=== PATIENT | male | born 1940 | race Caucasian/White ===

== ENCOUNTER 2017-12-20 20:03 | Emergency (ER) | payer MEDICARE, OTHER ==
[2017-12-20 20:09] VITALS: BMI 28.1
[2017-12-20 20:13] VITALS: PULSE 85; RESP 16; TEMP 98; O2SAT 96
[2017-12-20] MEDS ORDERED: Lidocaine 2% w Epi 1:100,000 Inj IJ STA (20:17)
[2017-12-20] MEDS ORDERED: Lidocaine 2% Inj (20ml) ONE (20:20)
[2017-12-20] MEDS ORDERED: Lidocaine 2% w Epi 1:100,000 Inj IJ ONE (20:24)
[2017-12-20] MEDS ORDERED: Tetanus/Diphtheria Toxoids 0.5 ml Syringe IM ONE ×2 (20:51→21:00)
--- NOTE | 2017-12-20 21:03 | ED PDOC ---
HPI: General Adult Time Seen by Provider: 12/20/17 20:13 Chief Complaint (Nursing): Abnormal Skin Integrity Chief Complaint (Provider): LEft lower leg laceration History Per: Patient History/Exam Limitations: no limitations Onset/Duration Of Symptoms: Mins Have you had recent travel within the past 21 days to any of the following countries: [place], [place], [place] or [place]?: No Current Symptoms Are (Timing): Still Present Additional Complaint(s): PT states he was doing yard work and cut the lower left leg on piece of wire/ metal. Unknown last tetanus vaccine. Pt taking plavix and aspirin at home after cardiac stent placement. Past Medical History Reviewed: Historical Data, Nursing Documentation, Vital Signs Vital Signs: Last Vital Signs Temp 98.0 F 12/20/17 20:09 Pulse 85 12/20/17 20:09 Resp 16 12/20/17 20:09 BP Pulse Ox 96 12/20/17 21:03 - Medical History PMH: CAD, Diabetes, HTN Denies: Chronic Kidney Disease - Surgical History Surgical History: Coronary Stent - Family History Family History: States: No Known Family Hx - Living Arrangements Living Arrangements: With Family - Social History Current smoker - smoking cessation education provided: No - Home Medications Home Medications: Ambulatory Orders Medication Instructions Recorded Tobramycin [Tobramycin 5 ml] 1 drop RIGHTEYE Q6 #0 arslan 04/20/15 Aspirin [Ecotrin] 325 mg PO DAILY 04/22/15 Clopidogrel [Plavix] 75 mg PO DAILY 04/22/15 Naproxen [Naprosyn] 500 mg PO BID PRN #20 tab 06/22/15 traMADol [Ultram] 50 mg PO QID #50 tab 06/22/15 Cephalexin [Keflex] 500 mg PO BID #14 capsule 12/20/17 - Allergies Allergies/Adverse Reactions: Allergies Allergy/AdvReac Type Severity Reaction Status Date / Time No Known Allergies Allergy Verified 12/20/17 20:09 Physical Exam - Reviewed Nursing Documentation Reviewed: Yes Vital Signs Reviewed: Yes - Physical Exam Appears: Positive for: Well, Non-toxic, No Acute Distress Head Exam: Positive for: ATRAUMATIC, NORMAL INSPECTION, NORMOCEPHALIC Skin: Positive for: Warm. Negative for: Normal Color (3 cm laceration, moderate bleeding ) Eye Exam: Positive for: Normal appearance ENT: Positive for: Normal ENT Inspection Neck: Positive for: Normal, Painless ROM Respiratory: Negative for: Accessory Muscle Use, Respiratory Distress Back: Positive for: Normal Inspection Extremity: Positive for: Normal ROM Neurologic/Psych: Positive for: Alert, Oriented - ECG O2 Sat by Pulse Oximetry: 96 Medical Decision Making Medical Decision Making: Tetanus vaccination administered. Procedures - Laceration/Wound Repair Left lower leg, posterior Wound Length (cm): 3 Wound's Depth, Shape: superficial Wound Explored: clean Betadine Prep?: No (Bleeding controlled after infiltrate) Anesthesia: Lidocaine w/ Epi (2cc) Wound Repaired With: Sutures Suture Size/Type: 4:0, nylon Wound Complexity: Simple Disposition - Clinical Impression Clinical Impression: Left leg pain - Patient ED Disposition Is Patient to be Admitted: No Counseled Patient/Family Regarding: Diagnosis, Need For Followup, Rx Given - Disposition Disposition: Routine/Home Disposition Time: 21:01 Condition: GOOD Additional Instructions: Do not get wet for 48 hours. Keep clean and dry with antibiotic ointment twice a day. Suture removal in 8-10 days. Prescriptions: Cephalexin [Keflex] 500 mg PO BID #14 capsule Instructions: Laceration Repair Forms: [email or web address] (Zimbabwean)
== END 2017-12-20 21:04 | disposition home or self-care (01) ==
LOC: H.ER 20:03
DX: S81.812A Laceration without foreign body, left lower leg, initial encounter (principal); Z23 Encounter for immunization; E11.9 Type 2 diabetes mellitus without complications; I10 Essential (primary) hypertension; I25.10 Atherosclerotic heart disease of native coronary artery without angina pectoris; Z79.02 Long term (current) use of antithrombotics/antiplatelets; Z79.82 Long term (current) use of aspirin; Z95.5 Presence of coronary angioplasty implant and graft

== ENCOUNTER 2017-12-28 13:22 | Emergency (ER) | payer MEDICARE, OTHER ==
--- NOTE | 2017-12-28 13:29 | ED PDOC ---
HPI: Skin/Bite Injury Time Seen by Provider: 12/28/17 13:26 Chief Complaint (Nursing): Suture/Staple Removal Chief Complaint (Provider): Suture removal - Placed 8 days ago History Per: Patient History/Exam Limitations: no limitations Onset/Duration Of Symptoms: Days Current Symptoms Are (Timing): Still Present Severity: None Additional Complaint(s): Pt was seen in [facility] 8 days ago and 3 sutures placed in the left lower leg. Pt reports no pain. No drainage. Pt states he did not begin the antibiotics because it was not painful. Past Medical History Reviewed: Historical Data, Nursing Documentation, Vital Signs Vital Signs: Last Vital Signs Temp 98.4 F 12/28/17 13:31 Pulse 75 12/28/17 13:31 Resp 16 12/28/17 13:31 BP 130/76 12/28/17 13:31 Pulse Ox 99 12/28/17 13:31 - Medical History PMH: CAD, Diabetes, HTN Denies: Chronic Kidney Disease - Surgical History Surgical History: Coronary Stent - Family History Family History: States: No Known Family Hx - Living Arrangements Living Arrangements: With Family - Social History Current smoker - smoking cessation education provided: No - Home Medications Home Medications: Ambulatory Orders Medication Instructions Recorded Tobramycin [Tobramycin 5 ml] 1 drop RIGHTEYE Q6 #0 arslan 04/20/15 Aspirin [Ecotrin] 325 mg PO DAILY 04/22/15 Clopidogrel [Plavix] 75 mg PO DAILY 04/22/15 Naproxen [Naprosyn] 500 mg PO BID PRN #20 tab 06/22/15 traMADol [Ultram] 50 mg PO QID #50 tab 06/22/15 Cephalexin [Keflex] 500 mg PO BID #14 capsule 12/20/17 - Allergies Allergies/Adverse Reactions: Allergies Allergy/AdvReac Type Severity Reaction Status Date / Time No Known Allergies Allergy Verified 12/20/17 20:09 Review of Systems ROS Statement: Except As Marked, All Systems Reviewed And Found Negative Constitutional: Negative for: Fever, Chills Skin: Positive for: Other Physical Exam - Reviewed Nursing Documentation Reviewed: Yes Vital Signs Reviewed: Yes - Physical Exam Appears: Positive for: Well, Non-toxic, No Acute Distress Head Exam: Positive for: ATRAUMATIC, NORMAL INSPECTION, NORMOCEPHALIC Skin: Positive for: Warm. Negative for: Normal Color (Well-helaing laceration of the left lower posterior leg, 3 sutures intact with localized erythema ) Eye Exam: Positive for: Normal appearance ENT: Positive for: Normal ENT Inspection Neck: Positive for: Normal Respiratory: Negative for: Accessory Muscle Use, Respiratory Distress Back: Positive for: Normal Inspection Extremity: Positive for: Normal ROM Neurologic/Psych: Positive for: Alert Medical Decision Making Medical Decision Making: Sutures easily removed with suture removal kits. No complaints. Discussed that if redness does not resolved to begin antibiotics. Disposition - Clinical Impression Clinical Impression: Visit for suture removal - Patient ED Disposition Is Patient to be Admitted: No Counseled Patient/Family Regarding: Need For Followup, Rx Given - Disposition Disposition: Routine/Home Disposition Time: 13:32 Condition: GOOD Instructions: Stitches Removal Forms: [employer] (Faroese)
[2017-12-28 13:34] VITALS: BP 130/76; PULSE 75; RESP 16; TEMP 98.4; O2SAT 99
== END 2017-12-28 13:35 | disposition home or self-care (01) ==
LOC: H.ER 13:22
DX: Z48.02 Encounter for removal of sutures (principal)

== ENCOUNTER 2018-02-01 17:02 | Emergency (ER) | payer MEDICARE ==
[2018-02-01 17:08] VITALS: O2SAT 100
[2018-02-01] MEDS ORDERED: Lidocaine 5% Patch TD STA (17:34)
[2018-02-01] MEDS ORDERED: Lidocaine 5% Patch TD ONE (17:55)
[2018-02-01 19:13] VITALS: BP 125/80; PULSE 75; RESP 16; TEMP 98.1
--- NOTE | 2018-02-01 19:15 | ED PDOC ---
Upper Extremity Pain/Injury Time Seen by Provider: 02/01/18 17:22 Chief Complaint (Nursing): Upper Extremity Problem/Injury History Per: Patient Additional Complaint(s): Pt. 7 days ago he was carrying a heavy boxy and he turned to his L side and he immediately felt pain in the L shoulder. States pain was bearable and was minimal but 3 days ago he tripped and fell landing on his L elbow and pain travelled to the L shoulder. L shoulder pain has also worsened. Denies chest pain, SOB, weakness, numbness, tingling, weakness, head injury, headache. Past Medical History Reviewed: Historical Data, Nursing Documentation, Vital Signs Vital Signs: Last Vital Signs Temp 97.9 F 02/01/18 17:04 Pulse 63 02/01/18 17:04 Resp 20 02/01/18 17:04 BP 167/78 H 02/01/18 17:04 Pulse Ox 100 02/01/18 17:04 - Medical History PMH: CAD, Diabetes, HTN Denies: Chronic Kidney Disease - Surgical History Surgical History: Coronary Stent (x 10) - Family History Family History: States: No Known Family Hx - Home Medications Home Medications: Ambulatory Orders Medication Instructions Recorded Tobramycin [Tobramycin 5 ml] 1 drop RIGHTEYE Q6 #0 arslan 04/20/15 Aspirin [Ecotrin] 325 mg PO DAILY 04/22/15 Clopidogrel [Plavix] 75 mg PO DAILY 04/22/15 Naproxen [Naprosyn] 500 mg PO BID PRN #20 tab 06/22/15 traMADol [Ultram] 50 mg PO QID #50 tab 06/22/15 Cephalexin [Keflex] 500 mg PO BID #14 capsule 12/20/17 Tramadol HCl [Ultram] 50 mg PO BID PRN #10 tablet 02/01/18 - Allergies Allergies/Adverse Reactions: Allergies Allergy/AdvReac Type Severity Reaction Status Date / Time No Known Allergies Allergy Verified 12/20/17 20:09 Review of Systems ROS Statement: Except As Marked, All Systems Reviewed And Found Negative Musculoskeletal: Positive for: Shoulder Pain Physical Exam - Physical Exam Appears: Positive for: Well, Non-toxic, No Acute Distress Head Exam: Positive for: ATRAUMATIC, NORMAL INSPECTION, NORMOCEPHALIC Skin: Positive for: Normal Color, Warm. Negative for: Rash Eye Exam: Positive for: Normal appearance Cardiovascular/Chest: Positive for: Regular Rate, Rhythm, Chest Non Tender Respiratory: Positive for: Normal Breath Sounds. Negative for: Respiratory Distress Pulses-Radial (L): 2+ Pulses-Radial (R): 2+ Extremity: Positive for: Normal ROM (FROM actively of LEFT upper extremity), Capillary Refill (< 2 seconds of LEFT upper extremity), Other (L lateral shoulder with minimal tenderness but no deformity or swelling; L elbow with mild swelling but no tenderness or deformity without break in skin integrity, warmth, or erythema) Neurologic/Psych: Positive for: Alert, Oriented. Negative for: Aphasia, Facial Droop - ECG O2 Sat by Pulse Oximetry: 100 - Progress ED Course And Treament: Ultram 50mg PO, lidoderm patch, L elbow, L shoulder x-ray, EKG ordered. Pt. refused EKG. Explained to pt. that EKG is done to r/o cardiac causes of shoulder pain. Pt. still refused EKG. Shoulder x-ray: calcific tendonitis; no fx of dislocation Elbow x-ray: no fx or dislocation. Disposition - Clinical Impression Clinical Impression: Shoulder tendonitis, Elbow injury - Patient ED Disposition Is Patient to be Admitted: No - Disposition Referrals: Tena Rolon MD [Staff Provider] - Disposition: Routine/Home Disposition Time: 18:45 Condition: STABLE Additional Instructions: Follow up with Dr. Nicanor Fall for further evaluation Return to ED immediately if symptoms worsen Prescriptions: Tramadol HCl [Ultram] 50 mg PO BID PRN #10 tablet PRN Reason: Other Instructions: Shoulder Tendinopathy (DC) Forms: [employer] (German)
--- NOTE | 2018-02-02 11:07 | RAD ---
PROCEDURE: Radiographs of the left elbow. HISTORY: Trauma COMPARISON: No prior. FINDINGS: BONES: The current study reveals that fragmentation of a small olecranon enthesophyte. Findings may represent superimposed acute on chronic fracture. Clinical correlation recommended. There is also fairly significant overlying dorsal soft tissue swelling that probably represents swelling of the bursa. JOINTS: No significant osteoarthritis. SOFT TISSUES: As above JOINT EFFUSION: No significant joint effusion is identified. OTHER FINDINGS: None IMPRESSION: The current study reveals that fragmentation of a small olecranon enthesophyte. Findings may represent superimposed acute on chronic fracture. Clinical correlation recommended. There is also fairly significant overlying dorsal soft tissue swelling that probably represents swelling of the bursa. . No significant joint effusion.
--- NOTE | 2018-02-02 11:07 | RAD ---
PROCEDURE: Radiographs of the Left Shoulder HISTORY: Trauma COMPARISON: No prior. FINDINGS: BONES: No evidence of acute displaced fracture nor dislocation. The osseous structures appear intact. 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 SOFT TISSUES: Normal. OTHER FINDINGS: None. IMPRESSION: No evidence of acute displaced fracture nor dislocation. Mild degenerative osteoarthritis as described.
== END 2018-02-01 19:12 | disposition home or self-care (01) ==
LOC: H.ER 17:02
DX: S59.901A Unspecified injury of right elbow, initial encounter (principal); W19.XXXA Unspecified fall, initial encounter; Y92.89 Other specified places as the place of occurrence of the external cause; M75.22 Bicipital tendinitis, left shoulder; E11.9 Type 2 diabetes mellitus without complications; I10 Essential (primary) hypertension; I25.10 Atherosclerotic heart disease of native coronary artery without angina pectoris; M19.012 Primary osteoarthritis, left shoulder; Z79.82 Long term (current) use of aspirin; Z95.5 Presence of coronary angioplasty implant and graft

== ENCOUNTER 2018-07-15 09:12 | Emergency (ER) | payer MEDICARE, OTHER ==
[2018-07-15 09:17] VITALS: O2SAT 98; BMI 29.9
[2018-07-15] MEDS ORDERED: Lidocaine 5% Patch TD STA (10:05)
--- NOTE | 2018-07-15 10:10 | ED PDOC ---
HPI: Back Time Seen by Provider: 07/15/18 09:30 Chief Complaint (Nursing): Back Pain Chief Complaint (Provider): Back Pain History Per: Patient History/Exam Limitations: no limitations Onset/Duration Of Symptoms: Days (x 3 months ) Current Symptoms Are (Timing): Still Present Quality Of Discomfort: "Pain" Additional Complaint(s): 78 year old male with a history of diabetes and 10 cardiac stents presents to the ED with sharp, left lower back pain for the last 3 months. Patient reports that pain began after he fell out of a chair onto the ground 3 months ago and has worsened in the last 2 weeks. He regularly takes Aspirin, Plavix and Metformin. Patient does not remember the name of his PMD because he recently switched. He denies radiation to legs, numbness, tingling, weakness, urinary symptoms, shortness of breath, chest pain, abdominal pain and testicular pain. PMD: none provided Past Medical History Reviewed: Historical Data, Nursing Documentation, Vital Signs Vital Signs: Last Vital Signs Temp 97.0 F L 07/15/18 09:21 Pulse 67 07/15/18 09:21 Resp 20 07/15/18 09:21 BP 121/69 07/15/18 09:21 Pulse Ox 98 07/15/18 09:16 - Medical History PMH: CAD, Diabetes, HTN Denies: Chronic Kidney Disease - Surgical History Surgical History: Coronary Stent (x 10) - Family History Family History: States: Unknown Family Hx - Home Medications Home Medications: Ambulatory Orders Medication Instructions Recorded Tobramycin [Tobramycin 5 ml] 1 drop RIGHTEYE Q6 #0 arslan 04/20/15 Aspirin [Ecotrin] 325 mg PO DAILY 04/22/15 Clopidogrel [Plavix] 75 mg PO DAILY 04/22/15 Naproxen [Naprosyn] 500 mg PO BID PRN #20 tab 06/22/15 RX: traMADol [Ultram] 50 mg PO QID #50 tab 06/22/15 Cephalexin [Keflex] 500 mg PO BID #14 capsule 12/20/17 Tramadol HCl [Ultram] 50 mg PO BID PRN #10 tablet 02/01/18 Diazepam [Valium] 2 mg PO BID PRN #6 tab 07/15/18 Lidocaine 5% [Lidoderm] 1 ea TD DAILY PRN #5 patch 07/15/18 RX: Acetaminophen [8Hr Arthritis 650 mg PO TID PRN 5 Days tablet.er 07/15/18 Pain] - Allergies Allergies/Adverse Reactions: Allergies Allergy/AdvReac Type Severity Reaction Status Date / Time No Known Allergies Allergy Verified 12/20/17 20:09 Review of Systems ROS Statement: Except As Marked, All Systems Reviewed And Found Negative Constitutional: Negative for: Weakness Cardiovascular: Negative for: Chest Pain Respiratory: Negative for: Shortness of Breath Gastrointestinal: Negative for: Abdominal Pain Genitourinary Male: Negative for: Dysuria, Frequency, Incontinence, Hematuria Musculoskeletal: Positive for: Back Pain Physical Exam - Reviewed Nursing Documentation Reviewed: Yes Vital Signs Reviewed: Yes - Physical Exam Appears: Positive for: No Acute Distress Head Exam: Positive for: ATRAUMATIC, NORMAL INSPECTION, NORMOCEPHALIC Skin: Positive for: Normal Color, Warm, Dry Eye Exam: Positive for: EOMI, Normal appearance, PERRL Neck: Positive for: Normal, Painless ROM, Supple Cardiovascular/Chest: Positive for: Regular Rate, Rhythm. Negative for: Murmur Respiratory: Positive for: Normal Breath Sounds. Negative for: Respiratory Distress Gastrointestinal/Abdominal: Positive for: Normal Exam, Soft. Negative for: Tenderness Back: Positive for: Other (mild lower back tenderness; positive straight leg test: on right side at 60 degrees and left side at 45 degrees). Negative for: Normal Inspection Extremity: Positive for: Normal ROM. Negative for: Tenderness, Deformity, Swelling Neurologic/Psych: Positive for: Alert, Oriented. Negative for: Motor/Sensory Deficits - ECG O2 Sat by Pulse Oximetry: 98 (RA) Pulse Ox Interpretation: Normal - Progress ED Course And Treament: 1100: Stable. AAOx3. Tolerated PO. No pain. Fu with pcp. Medical Decision Making Medical Decision Makin:05 Impression: lower back pain Initial Plan: Patient will be given Tylenol, Lidocaine and Valium. Will hold on NSAIDS because patient is on two blood thinners. Scribe Attestation: Documented by Petra Clark acting as a scribe for Tk Cheney MD Provider Scribe Attestation: All medical record entries made by the Scribe were at my direction and personally dictated by me. I have reviewed the chart and agree that the record accurately reflects my personal performance of the history, physical exam, medical decision making, and the department course for this patient. I have also personally directed, reviewed, and agree with the discharge instructions and disposition. Disposition - Clinical Impression Clinical Impression: Chronic back pain - Disposition Referrals: [facility] [Outside] - 07/15/18 10:07 am Disposition Time: 11:00 Condition: STABLE Additional Instructions: Return if not better in 3 days. Prescriptions: RX: Acetaminophen [8Hr Arthritis Pain] 650 mg PO TID PRN 5 Days tablet.er PRN Reason: Pain, Moderate (4-7) Diazepam [Valium] 2 mg PO BID PRN #6 tab PRN Reason: Muscle Spasm Lidocaine 5% [Lidoderm] 1 ea TD DAILY PRN #5 patch PRN Reason: Pain, Moderate (4-7) Instructions: Low Back Pain in Adults Forms: [employer] (Maltese)
[2018-07-15] MEDS ORDERED: Lidocaine 5% Patch TD ONE (10:22)
[2018-07-15 10:31] VITALS: BP 108/66; PULSE 68; RESP 18; TEMP 98.8
== END 2018-07-15 10:30 | disposition home or self-care (01) ==
LOC: H.ER 09:12
DX: M54.9 Dorsalgia, unspecified (principal); G89.29 Other chronic pain; E11.9 Type 2 diabetes mellitus without complications; I10 Essential (primary) hypertension; Z79.02 Long term (current) use of antithrombotics/antiplatelets; Z95.5 Presence of coronary angioplasty implant and graft

== ENCOUNTER 2018-09-11 17:02 | Emergency (ER) | payer MEDICARE ==
[2018-09-11 17:02] VITALS: BMI 29.9
[2018-09-11 17:11] VITALS: BP 120/66; PULSE 75; RESP 18; TEMP 97.8; O2SAT 99
--- NOTE | 2018-09-11 18:12 | ED PDOC ---
HPI: Trauma/Fall - HPI Time Seen by Provider: 09/11/18 17:11 Chief Complaint (Nursing): Trauma Chief Complaint (Provider): Back pain History Per: Patient Additional Complaint(s): 78 yo male, PMH of Back pain, DM, HTN, High Cholesterol and CAD ([address]), presents to ED for evaluation of left sided lower back pain x 1 week now s/p a slip and fall off a chair. Pt has been ambulating with steady gait. Pt reports the pain has gotten worse over the last few days, worse with movement. Past Medical History Reviewed: Nursing Documentation, Vital Signs Vital Signs: Last Vital Signs Temp 97.8 F 09/11/18 17:09 Pulse 75 09/11/18 17:09 Resp 18 09/11/18 17:09 BP 120/66 09/11/18 17:09 Pulse Ox 99 09/11/18 17:09 - Medical History PMH: CAD, Diabetes, HTN Denies: Chronic Kidney Disease - Surgical History Surgical History: Coronary Stent (x 10) - Family History Family History: States: Unknown Family Hx - Living Arrangements Living Arrangements: With Family - Social History Current smoker - smoking cessation education provided: No Alcohol: Social Drugs: Denies - Home Medications Home Medications: Ambulatory Orders Medication Instructions Recorded Tobramycin [Tobramycin 5 ml] 1 drop RIGHTEYE Q6 #0 arslan 04/20/15 Aspirin [Ecotrin] 325 mg PO DAILY 04/22/15 Clopidogrel [Plavix] 75 mg PO DAILY 04/22/15 Naproxen [Naprosyn] 500 mg PO BID PRN #20 tab 06/22/15 RX: traMADol [Ultram] 50 mg PO QID #50 tab 06/22/15 Cephalexin [Keflex] 500 mg PO BID #14 capsule 12/20/17 Tramadol HCl [Ultram] 50 mg PO BID PRN #10 tablet 02/01/18 Diazepam [Valium] 2 mg PO BID PRN #6 tab 07/15/18 Lidocaine 5% [Lidoderm] 1 ea TD DAILY PRN #5 patch 07/15/18 RX: Acetaminophen [8Hr Arthritis 650 mg PO TID PRN 5 Days tablet.er 07/15/18 Pain] Cyclobenzaprine [Cyclobenzaprine 10 mg PO TID #20 tab 09/11/18 HCl] oxyCODONE/Acetaminophen [Percocet 1 ea PO Q6 PRN #10 tab 09/11/18 5/325 mg Tab] RX: Clindamycin [Cleocin] 300 mg PO TID #15 cap 10/15/18 - Allergies Allergies/Adverse Reactions: Allergies Allergy/AdvReac Type Severity Reaction Status Date / Time No Known Allergies Allergy Verified 10/17/18 10:18 Review of Systems ROS Statement: Except As Marked, All Systems Reviewed And Found Negative Musculoskeletal: Positive for: Back Pain Physical Exam - Reviewed Nursing Documentation Reviewed: Yes Vital Signs Reviewed: Yes - Physical Exam Appears: Positive for: Well, Non-toxic, No Acute Distress Head Exam: Positive for: ATRAUMATIC, NORMAL INSPECTION, NORMOCEPHALIC Skin: Positive for: Normal Color, Warm, DRY Eye Exam: Positive for: EOMI, Normal appearance, PERRL ENT: Positive for: Normal ENT Inspection Neck: Positive for: Normal, Painless ROM Cardiovascular/Chest: Positive for: Regular Rate, Rhythm Respiratory: Positive for: CNT, Normal Breath Sounds Gastrointestinal/Abdominal: Positive for: Normal Exam, Soft Back: Positive for: L CVA Tenderness, Vertebral Tenderness, Muscle Spasm Extremity: Positive for: Normal ROM Neurologic/Psych: Positive for: Alert, Oriented - ECG O2 Sat by Pulse Oximetry: 99 Medical Decision Making Medical Decision Making: CT ordered, results discussed with Pt who demonstrated full understanding Pt medicated with Toradol and Flexeril Disposition - Clinical Impression Clinical Impression: Severe back pain - Patient ED Disposition Is Patient to be Admitted: No - Disposition Disposition: Routine/Home Disposition Time: 18:25 Condition: STABLE Prescriptions: Cyclobenzaprine [Cyclobenzaprine HCl] 10 mg PO TID #20 tab oxyCODONE/Acetaminophen [Percocet 5/325 mg Tab] 1 ea PO Q6 PRN #10 tab PRN Reason: Pain, Severe (8-10) Instructions: Low Back Pain (DC) Forms: [employer] (Iraqi)
--- NOTE | 2018-09-12 12:59 | CT ---
Date of service: 09/11/2018 PROCEDURE: CT Lumbar Spine without contrast HISTORY: Severe pain s/p fall, hx of surgery COMPARISON: None available. TECHNIQUE: Axial computed tomography images were obtained of the lumbar spine without the use of intravenous contrast. Coronal and sagittal reformatted images were created and reviewed. Radiation dose: Total exam DLP = 919.62 mGy-cm. This CT exam was performed using one or more of the following dose reduction techniques: Automated exposure control, adjustment of the mA and/or kV according to patient size, and/or use of iterative reconstruction technique. FINDINGS: VERTEBRAE: No acute compression fractures no retropulsed fragments.. Slight posterior subluxation L2 over L3. There is an underlying bilateral spondylolysis and grade 1 spondylolisthesis L 4 L5 level. There has been discectomy and placement of a prostatic disc with lower elwha bone graft material. Fusion appears solid. Bilateral laminectomy with posterior fixation accomplished by short segment Marshall rods attached to the right and left pedicles of the L4 and L5 segments.. There are posterior bony fusion masses surrounding the posterior elements of the L5 and to a lesser degree L4 segments.. Hardware appears intact without evidence of loosening or infection The central canal at the L4-L5 level is quite capacious. The facets are hypertrophic. Exit foramina are stenotic bilaterally. DISCS/SPINAL CANAL/NEURAL FORAMINA: L1-2: Disc space height maintained. No disc herniation or significant disc bulge. The overall central bony canal appears adequate. Facets are slightly prominent. Able. L2-3: There is cortical endplate irregularity with mild posterior disc space narrowing. [id number] broad-based disc bulge ridge complex flattens the ventral surface of the thecal sac. The facets are hypertrophic at this level as well.. Central canal appears marginal to adequate. The proximal exit foramina are stenotic bilaterally.. There is relatively adequate disc height. No disc herniation or significant disc bulge. Facet joints are hypertrophic. Central canal appears adequate. Proximal exit foramina are marginal.. L4-5: As above.. L5-S1: There is mild posterior disc space narrowing with small central and bilateral disc bulge that reaches the ventral surface of the thecal sac. Facets are hypertrophic. The overall central bony canal appears adequate. Exit foramina are stenotic bilaterally.. PARASPINAL SOFT TISSUES: Unremarkable. OTHER FINDINGS: Note made of a partially exophytic cyst along the posteromedial cortex of the upper/midpole right kidney.. IMPRESSION: No acute fractures. There is an underlying bilateral spondylolysis with grade 1 spondylolisthesis L5-S1 level. Bilateral laminectomy at the L4-L5 level with discectomy and fusion with posterior fixation as detailed above. Multilevel degenerative spondylosis which most notably affect the exit foramina as above. Right renal cyst.
== END 2018-09-11 19:59 | disposition home or self-care (01) ==
LOC: H.ER 17:02
DX: M54.5 Low back pain (principal); W07.XXXA Fall from chair, initial encounter; E11.9 Type 2 diabetes mellitus without complications; I10 Essential (primary) hypertension; Z95.5 Presence of coronary angioplasty implant and graft
CPT/HCPCS: 72131; 96372; 99284; J1885

== ENCOUNTER 2018-10-15 14:56 | Emergency (ER) | payer MEDICARE ==
[2018-10-15 14:56] VITALS: BMI 29.9
[2018-10-15] MEDS ORDERED: LIDOCAINE 2% 10ML 20 MG/ML VIAL IJ STA (16:17)
[2018-10-15] MEDS ORDERED: Lidocaine 2% Inj (20ml) IJ STA (16:36)
[2018-10-15] MEDS ORDERED: Lidocaine 2% Inj (20ml) ONE (16:36)
--- NOTE | 2018-10-15 16:54 | ED PDOC ---
HPI: General Adult Time Seen by Provider: 10/15/18 15:38 Chief Complaint (Nursing): Groin Pain Chief Complaint (Provider): Left inner thigh lump and left testicular pain History Per: Patient History/Exam Limitations: no limitations Onset/Duration Of Symptoms: Days (x2) Current Symptoms Are (Timing): Still Present Additional Complaint(s): 78 year old male presents to the ED complaining of a painful lump to the left inner thigh which started yesterday morning. Denies fever, weakness, or prior history of skin infection or abscesses. Patient is also complaining of left testicular pain and swelling last week. He denies dysuria or back pain. Testicular pain has since become intermittent and has had none today. PMD: none provided Past Medical History Reviewed: Historical Data, Nursing Documentation, Vital Signs Vital Signs: Last Vital Signs Temp 97.7 F 10/15/18 15:06 Pulse 69 10/15/18 15:06 Resp 18 10/15/18 15:06 BP 137/81 10/15/18 15:06 Pulse Ox 98 10/15/18 15:06 - Medical History PMH: Back Problems, CAD, Diabetes, HTN Denies: Chronic Kidney Disease - Surgical History Surgical History: Coronary Stent (x 10) - Family History Family History: States: Unknown Family Hx - Home Medications Home Medications: Ambulatory Orders Medication Instructions Recorded Tobramycin [Tobramycin 5 ml] 1 drop RIGHTEYE Q6 #0 arslan 04/20/15 Aspirin [Ecotrin] 325 mg PO DAILY 04/22/15 Clopidogrel [Plavix] 75 mg PO DAILY 04/22/15 Naproxen [Naprosyn] 500 mg PO BID PRN #20 tab 06/22/15 RX: traMADol [Ultram] 50 mg PO QID #50 tab 06/22/15 Cephalexin [Keflex] 500 mg PO BID #14 capsule 12/20/17 Tramadol HCl [Ultram] 50 mg PO BID PRN #10 tablet 02/01/18 Diazepam [Valium] 2 mg PO BID PRN #6 tab 07/15/18 Lidocaine 5% [Lidoderm] 1 ea TD DAILY PRN #5 patch 07/15/18 RX: Acetaminophen [8Hr Arthritis 650 mg PO TID PRN 5 Days tablet.er 07/15/18 Pain] Cyclobenzaprine [Cyclobenzaprine 10 mg PO TID #20 tab 09/11/18 HCl] oxyCODONE/Acetaminophen [Percocet 1 ea PO Q6 PRN #10 tab 09/11/18 5/325 mg Tab] RX: Clindamycin [Cleocin] 300 mg PO TID #15 cap 10/15/18 - Allergies Allergies/Adverse Reactions: Allergies Allergy/AdvReac Type Severity Reaction Status Date / Time No Known Allergies Allergy Verified 10/17/18 10:18 Review of Systems ROS Statement: Except As Marked, All Systems Reviewed And Found Negative Constitutional: Negative for: Fever, Weakness Genitourinary Male: Positive for: Other (Left testicular pain). Negative for: Dysuria Musculoskeletal: Negative for: Back Pain Skin: Positive for: Other (Painful lump on left inner thigh) Physical Exam - Reviewed Nursing Documentation Reviewed: Yes Vital Signs Reviewed: Yes - Physical Exam Appears: Positive for: Non-toxic, No Acute Distress Head Exam: Positive for: ATRAUMATIC, NORMAL INSPECTION, NORMOCEPHALIC Skin: Positive for: Normal Color, Warm, Dry Eye Exam: Positive for: Normal appearance Neck: Positive for: Normal, Painless ROM Cardiovascular/Chest: Positive for: Regular Rate, Rhythm, Chest Non Tender Respiratory: Positive for: Normal Breath Sounds. Negative for: Wheezing, Respiratory Distress Gastrointestinal/Abdominal: Positive for: Normal Exam, Soft. Negative for: Tenderness Male Genital Exam: Positive for: testicular tenderness (L) (mild), other (Uncircumcised; no edema of the left testicle). Negative for: erythema (of the left testicle) Extremity: Positive for: Normal ROM (full ROM of all joints), Other (Left mid inner thigh: 3cm fluctuant abscess with mild surrounding erythema; no edema distally) Neurologic/Psych: Positive for: Alert, samples and repairs preparer II-XII (intact), Oriented. Negative for: Motor/Sensory Deficits - ECG O2 Sat by Pulse Oximetry: 98 (RA) Pulse Ox Interpretation: Normal Medical Decision Making Medical Decision Making: Initial Plan: --Lidocaine 2% 5mL IJ --Urinalysis --US testes duplex labs and US report reviewed Followup 2 days for packing removal Rx Abx and wound care Scribe Attestation: Documented by Tavo Sun acting as a scribe for Adair VaughnDany Villalpando III, DO. Provider Scribe Attestation: All medical record entries made by the Scribe were at my direction and personally dictated by me. I have reviewed the chart and agree that the record accurately reflects my personal performance of the history, physical exam, medical decision making, and the department course for this patient. I have also personally directed, reviewed, and agree with the discharge instructions and disposition. Procedures - Incision and Drainage Site: Left leg Blade Size: 11 I & D Procedure: sterile dressing applied Progress: Lidocaine 2% used. Size 11 blade used for T incision with copious purulent material. Area irrigated and packed and patient advised to return in 48 hours for packing removal. Disposition - Clinical Impression Clinical Impression: Abscess of leg, Varicocele - Patient ED Disposition Is Patient to be Admitted: No Counseled Patient/Family Regarding: Studies Performed, Diagnosis, Need For Followup - Disposition Referrals: Larry Marie MD [Medical Doctor] - Disposition: Routine/Home Disposition Time: 19:00 Condition: STABLE Additional Instructions: See urology for followup of testicular pain. Return to ER in 2 days for packing removal of L leg abscess. Return to ER earlier for any fever, spreading redness, weakness or any concern. Take antibiotic as directed. Prescriptions: RX: Clindamycin [Cleocin] 300 mg PO TID #15 cap Instructions: Skin Abscess, Hydrocele/Varicocele (DC) Forms: [email or web address] (Nepalese)
[2018-10-15 17:43] LABS: SQUAMOUS EPITHIAL < 1 /hpf (0-5); URINE BACTERIA RARE (<OCC); URINE BILIRUBIN NEGATIVE (NEGATIVE); URINE BLOOD NEGATIVE (NEGATIVE); URINE CLARITY SLIGHTY-CLOUDY (Clear); URINE COLOR YELLOW (YELLOW); URINE GLUCOSE (UA) NEG (NEGATIVE); URINE LEUKOCYTE ESTERASE NEG Leu/uL (Negative); URINE PROTEIN NEGATIVE (NEGATIVE); URINE UROBILINOGEN 0.2-1.0 mg/dL (0.2-1.0)
--- NOTE | 2018-10-15 18:30 | US ---
Date of service: 10/15/2018 HISTORY: L testicular pain x1 week TECHNIQUE: Realtime sonography through the scrotum with color and doppler flow. COMPARISON: None Available. FINDINGS: RIGHT TESTICLE: Measures 4.4 x 1.8 x 2.2 cm. Homogeneous echotexture. Blood flow is demonstrated. RIGHT EPIDIDYMIS: None available. LEFT TESTICLE: Measures 4.0 x 1.6 x 3.2 cm. Homogeneous echotexture. Blood flow is demonstrated. LEFT EPIDIDYMIS: None available. HYDROCELE: Bilateral hydroceles. VARICOCELE: Large left-sided varicocele. OTHER FINDINGS: None. IMPRESSION: Bilateral hydroceles. Large left-sided varicoceles.
[2018-10-15 19:13] VITALS: BP 122/72; PULSE 58; RESP 16; TEMP 97.9
[2018-10-20 13:33] VITALS: O2SAT 98
== END 2018-10-15 19:10 | disposition home or self-care (01) ==
LOC: H.ER 14:56
DX: L02.416 Cutaneous abscess of left lower limb (principal); I86.1 Scrotal varices; I10 Essential (primary) hypertension; E11.9 Type 2 diabetes mellitus without complications; Z95.5 Presence of coronary angioplasty implant and graft; Z79.82 Long term (current) use of aspirin; I25.10 Atherosclerotic heart disease of native coronary artery without angina pectoris

== ENCOUNTER 2018-10-17 09:56 | Emergency (ER) | payer MEDICARE ==
[2018-10-17 09:56] VITALS: BMI 29.9
[2018-10-17 10:05] VITALS: BP 135/79; PULSE 60; RESP 20; TEMP 97.4; O2SAT 97
--- NOTE | 2018-10-17 10:20 | ED PDOC ---
HPI: Wound Care - HPI Time Seen by Provider: 10/17/18 10:08 Chief Complaint (Nursing): Wound Check History Per: Patient Onset/Duration Of Symptoms: Days (2) Additional Complaint(s): s/p I&D abscess left thigh 2 days ago, for paccking removal. Denies fever or pain. Past Medical History Vital Signs: Last Vital Signs Temp 97.4 F L 10/17/18 10:03 Pulse 60 10/17/18 10:03 Resp 20 10/17/18 10:03 BP 135/79 10/17/18 10:03 Pulse Ox 97 10/17/18 10:03 - Medical History PMH: Back Problems, CAD, Diabetes, HTN Denies: Chronic Kidney Disease - Surgical History Surgical History: Coronary Stent (x 10) - Family History Family History: States: Unknown Family Hx - Home Medications Home Medications: Ambulatory Orders Medication Instructions Recorded Tobramycin [Tobramycin 5 ml] 1 drop RIGHTEYE Q6 #0 arslan 04/20/15 Aspirin [Ecotrin] 325 mg PO DAILY 04/22/15 Clopidogrel [Plavix] 75 mg PO DAILY 04/22/15 Naproxen [Naprosyn] 500 mg PO BID PRN #20 tab 06/22/15 traMADol [Ultram] 50 mg PO QID #50 tab 06/22/15 Cephalexin [Keflex] 500 mg PO BID #14 capsule 12/20/17 Tramadol HCl [Ultram] 50 mg PO BID PRN #10 tablet 02/01/18 Acetaminophen [8Hr Arthritis Pain] 650 mg PO TID PRN 5 Days tablet.er 07/15/18 Diazepam [Valium] 2 mg PO BID PRN #6 tab 07/15/18 Lidocaine 5% [Lidoderm] 1 ea TD DAILY PRN #5 patch 07/15/18 Cyclobenzaprine [Cyclobenzaprine 10 mg PO TID #20 tab 09/11/18 HCl] oxyCODONE/Acetaminophen [Percocet 1 ea PO Q6 PRN #10 tab 09/11/18 5/325 mg Tab] Clindamycin [Cleocin] 300 mg PO TID #15 cap 10/15/18 - Allergies Allergies/Adverse Reactions: Allergies Allergy/AdvReac Type Severity Reaction Status Date / Time No Known Allergies Allergy Verified 10/17/18 10:18 Review of Systems Constitutional: Negative for: Fever Skin: Negative for: Rash, Lesions Physical Exam - Physical Exam Appears: Positive for: Non-toxic, No Acute Distress Extremity: Positive for: Other (Left inner thigh, packing removed, minimal serosanguinaous drainage. No erythema or tenderness.) - ECG O2 Sat by Pulse Oximetry: 97 Disposition - Clinical Impression Clinical Impression: Encounter for postoperative wound check - Patient ED Disposition Is Patient to be Admitted: No Counseled Patient/Family Regarding: Diagnosis, Need For Followup - Disposition Referrals: [facility] [Outside] Disposition: Routine/Home Disposition Time: 10:20 Condition: FAIR Instructions: Wound Care (DC)
== END 2018-10-17 10:36 | disposition home or self-care (01) ==
LOC: H.ER 09:56
DX: Z48.01 Encounter for change or removal of surgical wound dressing (principal)